=== PATIENT | male | born 1995 | race Caucasian/White ===

== ENCOUNTER 2020-04-28 05:09 | Inpatient (IN) | payer OTHER ==
[~2020-04-28] VITALS: Ht 177.8 cm; Wt 63.6 kg
[2020-04-28] VITALS (8 sets, daily range): BP systolic 110–136; BP diastolic 45–86
--- NOTE | 2020-04-28 17:49 | NUR ---
PT C/O "SEVERE PAIN" 07/27 AFTER TOTAL DOSAGE OF [employer] OF [facility] NOTIFIED DR HENRIQUEZ OF PATIENTS PAIN LEVEL
--- NOTE | 2020-04-28 18:21 | NUR ---
DR SCHAFER HERE TO SEE PATIENT DISCUSSED PLAN OF CARE WITH PATIENT AND MOTHER
--- NOTE | 2020-04-28 18:53 | NUR ---
SPOKE WITH DR SCHAFER, HE WAS GOING TO CALL DR PATTERSON
--- NOTE | 2020-04-28 19:04 | NUR ---
NURSE FROM SURGERY CALLED REPORT TO THIS NURSE. PT WILL BE COMING TO FLOOR.
--- NOTE | 2020-04-28 19:24 | NUR ---
A 24, admitted to 5E, under the services of ROSARIO Velázquez DO with a diagnosis of POST OP PAIN MGMT. Chief complaint is POST OP PAIN. Patient arrived via stretcher from OP/ADMIT. Monitor applied. Initial assessment completed. Vital signs taken and recorded. ROSARIO VELÁZQUEZ DO notified of admission to the unit. Orders received. See assessment for past medical history, medications and allergies. Patient and/or family oriented to unit. Clothing/patient valuable form completed. RICHARDSON ARREGUIN PATIENT BROUGHT TO FLOOR FROM SURGERY
--- NOTE | 2020-04-28 20:20 | NUR ---
PATIENT CRYING OUT. HR 130'S. PATIENT ENCOURAGED TO BREATHE. DILAUDID 0.25 GIVEN PER ORDERS. SPO2 98% ON 2L NC.
--- NOTE | 2020-04-28 20:25 | NUR ---
DR SCHAFER IN TO SEE PT
--- NOTE | 2020-04-28 20:33 | NUR ---
PATIENT APPEARS MORE CALM, HR 80'S, LAYING ON BACK, EASY RESPIRATIONS.
--- NOTE | 2020-04-28 23:23 | NUR ---
DILAUDID GIVEN AT THIS TIME PER REQUEST FOR PAIN TO LLE RATED 9/10. WILL DOC EFFECTIVENESS.
--- NOTE | 2020-04-28 23:50 | NUR ---
PATIENT RESTING COMFORTABLY. DILAUDID APPEARS EFFECTIVE.
[2020-04-29] VITALS: BP 111/50
--- NOTE | 2020-04-29 05:38 | NUR ---
PAIN RATED 8/10 AT THIS TIME TO LLE, SCHEDULED TYLENOL GIVEN AND PRN IV DILAUDID. WILL MONITOR EFFECTIVENESS.
[2020-04-29 05:44] VITALS: BP 116/60
[2020-04-29 07:06] LABS: HEMATOCRIT 37.2 % (42.0-52.0); MEAN CELL VOLUME 86.9 fl (80.0-94.0); MEAN CORPUSCULAR HGB 29.4 pg (27.0-31.0); MEAN CORPUSCULAR HGB CONC 33.9 g/dl (33.0-37.0); MEAN PLATELET VOLUME 11.9 fl (9.6-12.3); PLATELET COUNT AUTOMATED 253 10*3/uL (130-400); RED BLOOD COUNT 4.28 10*6/uL (4.50-5.90); WHITE BLOOD COUNT 16.5 10*3/uL (4.8-10.8)
[2020-04-29 07:40] LABS: ALBUMIN 3.7 gm/dl (3.1-4.5); BUN 7 mg/dl (7-24); CHLORIDE 103 mmol/L (98-107); POTASSIUM 3.7 mmol/L (3.5-5.1); SODIUM 138 mmol/L (136-145)
[2020-04-29 07:41] LABS: OVALOCYTES FEW; PLATELET SUFFICIENCY NORMAL (NORMAL); POLYCHROMASIA SLIGHT; ROULEAUX SLIGHT; TOTAL CELLS COUNTED 100 #CELLS
[2020-04-29 07:48] LABS: ALKALINE PHOSPHATASE 51 U/L (45-117); CREATININE 0.71 mg/dL (0.70-1.30); FREE T4 1.19 ng/dl (0.76-1.46); SGOT/AST 13 IU/L (3-35); SGPT/ALT 20 U/L (12-78); THYROID STIM HORMONE (HS) 0.192 uIU/ml (0.358-4.75); TOTAL PROTEIN 6.7 gm/dL (6.4-8.2)
--- NOTE | 2020-04-29 08:17 | NUR ---
IN TO SEE PATIENT AT THIS TIME.
--- NOTE | 2020-04-29 08:20 | NUR ---
IN TO SEE PATIENT REGARDING PLAN OF CARE. NEW ORDERS TO BE ENTERED PER PHYSICIAN.
--- NOTE | 2020-04-29 08:31 | NUR ---
IV TORADOL AND PO FLEXERIL GIVEN PER ORDER FOR C/O LLE PAIN. RATES PAIN 07/27. WILL MONITOR EFFECTIVENESS. VSS. CALL LIGHT WITHIN REACH.
--- NOTE | 2020-04-29 09:14 | NUR ---
PT MEDICATED WITH IV DILAUDID PER PRN ORDER FOR C/O LLE PAIN. RATES PAIN 9/10. PATIENT STATES MINIMAL RELIEF FROM IV TORADOL. WILL MONITOR EFFECTIVENESS. SINUS ARTIS PER CM. HR 58. POX 100% VIA 2LNC. CALL LIGHT WITHIN REACH.
--- NOTE | 2020-04-29 10:14 | NUR ---
DILAUDID RELIEVING PAIN/DISCOMFORT PER PT. WILL CONTINUE TO MONITOR.
--- NOTE | 2020-04-29 11:06 | NUR ---
IN TO SEE PATIENT AT THIS TIME.
[2020-04-29] MEDS ORDERED: PERCOCET 5-3251 EACH PO (11:09)
[2020-04-29] MEDS ORDERED: DOXYCYCLINE100 M3 PO (11:10)
[2020-04-29] MEDS ORDERED: XARELTO10 MG PO (11:11)
[2020-04-29 12:00] VITALS: BP 108/56
--- NOTE | 2020-04-29 12:27 | NUR ---
ASSISTED WITH READJUSTMENT TO SOFT CAST. PT TOLERATED WELL. WILL CONTINUE TO MONITOR.
--- NOTE | 2020-04-29 13:30 | NUR ---
IN TO SEE PATIENT REGARDING DISCHARGE. PAIN UNDER CONTROL PER PT.
--- NOTE | 2020-04-29 14:55 | NUR ---
THIS NURSE UNABLE TO OBTAIN DISCHARGE PHOTO. PATIENT'S SOFT CAST TO REMAIN INTACT. UNABLE TO REMOVE PER ORDER.
--- NOTE | 2020-04-29 15:01 | NUR ---
Discharge instructions reviewed with patient/family. Patient receptive and verbalizes understanding. Follow-up care arranged. Written instructions given to patient/family. TRACI FRANKEL.
== END 2020-04-29 15:01 | disposition home or self-care (01) | DRG 314 ==
LOC: SDC 05:09 → 5E 18:57
PROVIDERS: Hospitalist; ADMIT Internal Medicine
PROC: 0LS Tendons, Reposition (ICD-10-PCS; principal; 2020-04-28)
PROC: 0SG Lower Joints, Fusion (ICD-10-PCS; 2020-04-28)
PROC: 0SGK0KZ Fusion of Right Tarsometatarsal Joint with Nonautologous Tissue Substitute, Open Approach (ICD-10-PCS; 2020-04-28)
PROC: 0QBP0ZZ Excision of Left Metatarsal, Open Approach (ICD-10-PCS; 2020-04-28)
DX: M21.612 Bunion of left foot (principal); M21.42 Flat foot [pes planus] (acquired), left foot; M19.072 Primary osteoarthritis, left ankle and foot; M20.12 Hallux valgus (acquired), left foot; G89.18 Other acute postprocedural pain; F17.290 Nicotine dependence, other tobacco product, uncomplicated; J96.01 Acute respiratory failure with hypoxia; R00.0 Tachycardia, unspecified; E83.41 Hypermagnesemia; R73.9 Hyperglycemia, unspecified; D64.9 Anemia, unspecified; R65.10 Systemic inflammatory response syndrome (SIRS) of non-infectious origin without acute organ dysfunction

== ENCOUNTER 2020-05-07 19:36 | Emergency (ER) | payer OTHER ==
[~2020-05-07] VITALS: Ht 177.8 cm; Wt 56.7 kg
[~2020-05-07 19:36] MED LIST: DOXYCYCLINE100 M3 PO; PERCOCET 5-3251 EACH PO; XARELTO10 MG PO
== END 2020-05-07 21:40 | disposition home or self-care (01) ==
LOC: ED 19:36
DX: M79.89 Other specified soft tissue disorders (principal); R20.0 Anesthesia of skin; Z47.89 Encounter for other orthopedic aftercare

== ENCOUNTER → 2021-09-19 | Day surgery (SDC) | payer OTHER ==
[2021-09-14 13:55] VITALS: BP 127/82
[~2021-09-19] VITALS: Ht 177.8 cm; Wt 56.7 kg
[~2021-09-19] MED LIST changes: +DOXYCYCLINE HY100 M3 PO; +ULTRAM50 MG PO
[2021-09-19 12:57] VITALS: BP 134/64
[2021-09-19 13:15] VITALS: BP 145/91
[2021-09-19 13:30] VITALS: BP 136/82
[2021-09-19 13:45] VITALS: BP 131/81
[2021-09-19 14:00] VITALS: BP 122/70
== END | disposition home or self-care (01) ==
LOC: SDC 09-07 12:30
PROVIDERS: ATTEND Podiatrist
DX: T84.84XA Pain due to internal orthopedic prosthetic devices, implants and grafts, initial encounter (principal); G57.52 Tarsal tunnel syndrome, left lower limb; Y82.8 Other medical devices associated with adverse incidents; Z20.822 Contact with and (suspected) exposure to COVID-19; Z79.899 Other long term (current) drug therapy